=== PATIENT | female | born 1995 | race Caucasian/White ===

== ENCOUNTER 2016-09-10 16:32 | Emergency (ER) | payer BC, OTHER ==
[2016-09-10 17:11] VITALS: TEMP 98.8
[2016-09-10] MEDS ORDERED: IBUPROFEN 200 MG TAB PO ONE (18:00)
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
[2016-09-10 19:03] VITALS: BP 170/100; PULSE 76; RESP 16; O2SAT 98
== END 2016-09-10 18:10 | disposition home or self-care (01) ==
LOC: CED 16:32
DX: S06.0X0A Concussion without loss of consciousness, initial encounter (principal); S05.12XA Contusion of eyeball and orbital tissues, left eye, initial encounter; R63.0 Anorexia; W19.XXXA Unspecified fall, initial encounter
CPT/HCPCS: 99203-PO; G0463-PO